=== PATIENT | female | born 1980 | race Caucasian/White ===

== ENCOUNTER → 2017-01-20 | Outpatient (CLI) | payer MEDICARE ==
[~2017-01-20] MED LIST: ABILIFY 15MG TA15 MG PO; AMBIEN 10MG10 MG PO; AMITRIPTYLINE H10 MG; AMOXICILLIN 8751 TAB PO; CARAFATE 1GM1 G PO; CEFTIN 250250 MG/TAB PO; CIPRO500 MG PO; CLEOCIN HCL300 MG PO; COLACE 100100 MG/CAP PO; CYMBALTA 30MG30 MG PO; CYMBALTA 60MG60 MG PO; CYMBALTA30 MG PO; DEPAKOTE 125MG125 M1 PO; DESYREL 100MG100 MG PO; DIAZEPAM PO; DILAUDID 4MG TAB4 MG PO; DILAUDID4 MG PO; DOXYCYCLINE 10100 MG PO; ELIMITE TOP; FENTANYL 75MCG TOP; FLAGYL500 MG PO; FLEXERIL 1010 MG/TAB PO; GABAPENTIN600 MG PO; HYDROMORPHONE HY8 MG PO; K-DUR 10 MEQ T10 MEQ PO; K-DUR 2020 MEQ PO; LEVAQUIN; LEVAQUIN 5500 MG/TA1 PO; LEXAPRO 10MG10 MG PO; LORTAB 5/500 501 TAB PO; LYRICA; MIRALAX PA17 GM/Dose PO; MOTRIN 600600 MG/TAB PO; MOTRIN 800800 MG/TAB PO; MS CONTIN60 MG PO; NAPROSYN500 MG PO; NEOSPORIN1 OIN OP; NORCO 325 MG-51 TAB PO; OXYCONTIN60 MG PO; PEPCID 20MG TAB20 MG PO; PERCOCET 325 MG1 TA2 PO; PERCOCET 325 MG1 TAB PO; PERCOCET 5/321 UDTAB PO; PERCOCET 650 MG1 TAB PO; PHENERGAN 25 TA25 MG PO; PHENERGAN W/CO120 M1 PO; PHENERGAN25 MG RC; PREDNISONE10 MG PO; PREVACID 15MG15 M1 PO; PRILOSEC 20MG20 MG PO; PROMETHAZINE12.5 M5 PO; PROVENTIL0.09 MG/A1 IH; REGLAN 10MG10 MG/TAB PO; XANAX 1MG1 MG PO; XANAX0.5 MG PO; ZANAFLEX 4MG TAB4 MG PO; ZOFRAN 4MG T4 MG/TAB PO; ZOFRAN ODT8 MG PO; [UNRECOGNIZED DRUG - REMARK]
== END ==
LOC: MC.RAD 13:00
DX: D24.2 Benign neoplasm of left breast (principal); D24.1 Benign neoplasm of right breast; Z98.82 Breast implant status

== ENCOUNTER 2017-05-09 16:39 | Emergency (ER) | payer MEDICARE ==
[~2017-05-09] VITALS: Ht 170.2 cm; Wt 51.2 kg
[2017-05-09 16:48] VITALS: BP 121/80; TEMP 98.9
[2017-05-09 18:39] VITALS: PULSE 107
== END 2017-05-09 19:00 | disposition home or self-care (01) ==
LOC: COL.ER 16:39
DX: S60.221A Contusion of right hand, initial encounter (principal); G89.29 Other chronic pain; M54.9 Dorsalgia, unspecified; F17.210 Nicotine dependence, cigarettes, uncomplicated; W22.01XA Walked into wall, initial encounter; Y92.009 Unspecified place in unspecified non-institutional (private) residence as the place of occurrence of the external cause

== ENCOUNTER 2018-02-02 12:12 | Emergency (ER) | payer MEDICARE ==
[~2018-02-02] VITALS: Ht 170.2 cm; Wt 54.2 kg
[2018-02-02 12:27] VITALS: BP 128/74; TEMP 98.3
[2018-02-02] MEDS ORDERED: B COMPLEX & B121 TAB PO (12:31)
[2018-02-02 16:04] VITALS: PULSE 86
== END 2018-02-02 16:08 | disposition home or self-care (01) ==
LOC: COL.ER 12:12
DX: S63.501A Unspecified sprain of right wrist, initial encounter (principal); S60.221A Contusion of right hand, initial encounter; F12.90 Cannabis use, unspecified, uncomplicated; F17.210 Nicotine dependence, cigarettes, uncomplicated; Z90.710 Acquired absence of both cervix and uterus; Z90.89 Acquired absence of other organs; Z90.49 Acquired absence of other specified parts of digestive tract; Z98.890 Other specified postprocedural states; Z98.51 Tubal ligation status; W22.8XXA Striking against or struck by other objects, initial encounter; Y92.009 Unspecified place in unspecified non-institutional (private) residence as the place of occurrence of the external cause
CPT/HCPCS: J1885; Q4021

== ENCOUNTER → 2018-09-25 | Outpatient (CLI) | payer MEDICARE ==
[~2018-09-25] MED LIST changes: +B COMPLEX & B121 TAB PO
== END ==
LOC: COL.VAS 15:00
DX: Z82.49 Family history of ischemic heart disease and other diseases of the circulatory system (principal)

== ENCOUNTER 2018-12-10 02:10 | Emergency (ER) | payer MEDICARE | END 2018-12-10 02:40 | disposition left against medical advice (07) | LOC: COL.ER 02:10 | DX: Z72.9 Problem related to lifestyle, unspecified (principal) ==

== ENCOUNTER 2019-03-10 17:41 | Emergency (ER) | payer MEDICARE ==
[2019-03-10 17:47] VITALS: TEMP 98.4
[2019-03-10 19:16] LABS: BASO % 0.5 % (0.0-2.0); EOS # 0.2 (0.0-0.7); EOS % 3.5 % (0-4.0); GRAN # 1.7 (1.4-6.5); GRAN % 38.5 % (42.2-75.2); HEMATOCRIT 44.5 % (37.0-47.0); HEMOGLOBIN 14.6 g/dl (12.5-16.0); LYMPH # 2.2 (1.2-3.4); LYMPH % 50.1 % (20.0-51.0); MEAN CELL VOLUME 98 fl (80.0-100.0); MEAN CORPUSCULAR HEMOGLOBIN 32 pg (27.0-31.0); MEAN CORPUSCULAR HGB CONC 33 g/dl (33.0-37.0); MEAN PLATELET VOLUME 10.4 fl (7.4-10.4); MONO # 0.3 (0.1-0.6); MONO % 7.4 % (1.7-9.3); PLATELET COUNT 273 K/mm3 (130-400); RED BLOOD COUNT 4.54 M/mm3 (4.10-5.30); REDCELL DISTRIBUTION WIDTH-CV 12.6 % (11.5-14.5)
[2019-03-10 20:21] LABS: ALBUMIN 4.1 gm/dL (3.5-5.0); BILIRUBIN,TOTAL 0.2 mg/dL (0.0-1.0); CALCIUM 8.4 mg/dL (8.4-10.2); CREATININE, serum 0.6 (0.52-1.25); PHOSPHOROUS 2.9 mg/dL (2.5-4.5); POTASSIUM 4.2 mmol/L (3.4-5.0); TOTAL PROTEIN 7.2 gm/dL (6.4-8.2)
[2019-03-10 20:51] LABS: TSH w REFLEX 0.217 uIU/mL (0.465-4.680)
[2019-03-10 22:49] VITALS: BP 118/82; PULSE 107
== END 2019-03-10 22:49 | disposition home or self-care (01) ==
LOC: COL.ER 17:41
PROVIDERS: Emergency Medicine
DX: R55 Syncope and collapse (principal); F41.9 Anxiety disorder, unspecified; F17.210 Nicotine dependence, cigarettes, uncomplicated; Z90.49 Acquired absence of other specified parts of digestive tract; Z90.710 Acquired absence of both cervix and uterus; Z90.89 Acquired absence of other organs
CPT/HCPCS: J2060; J7030

== ENCOUNTER 2019-04-30 19:23 | Inpatient (IN) | payer MEDICARE ==
[~2019-04-30] VITALS: Ht 170.2 cm; Wt 55.5 kg
[2019-04-30 20:11] LABS: BASO % 0.2 % (0.0-2.0); EOS # 0.2 (0.0-0.7); EOS % 1.4 % (0-4.0); GRAN # 7.3 (1.4-6.5); GRAN % 69.1 % (42.2-75.2); HEMOGLOBIN 15.9 g/dl (12.5-16.0); LYMPH # 2.5 (1.2-3.4); LYMPH % 23.3 % (20.0-51.0); MEAN CELL VOLUME 95 fl (80.0-100.0); MEAN CORPUSCULAR HEMOGLOBIN 32 pg (27.0-31.0); MEAN CORPUSCULAR HGB CONC 34 g/dl (33.0-37.0); MEAN PLATELET VOLUME 10.1 fl (7.4-10.4); MONO # 0.6 (0.1-0.6); MONO % 5.8 % (1.7-9.3); PLATELET COUNT 278 K/mm3 (130-400); RED BLOOD COUNT 4.97 M/mm3 (4.10-5.30); REDCELL DISTRIBUTION WIDTH-CV 13.1 % (11.5-14.5)
[2019-04-30 20:24] LABS: ALANINE AMINOTRANSFERASE 14 U/L (4-34); ALBUMIN 4.8 gm/dL (3.5-5.0); ALKALINE PHOSPHATASE 67 U/L (50-136); ANION GAP 12 mmol/L (7-16); AST,SGOT 22 U/L (15-37); BILIRUBIN,TOTAL 0.5 mg/dL (0.0-1.0); BLOOD UREA NITROGEN 15 mg/dL (7-17); CALCIUM 9.9 mg/dL (8.4-10.2); CARBON DIOXIDE 21 mmol/L (22-30); CHLORIDE 106 mmol/L (98-107); CREATININE, serum 0.71 (0.52-1.25); GLUCOSE 122 mg/dL (74-106); LIPASE 105 U/L (23-300); POTASSIUM 4.4 mmol/L (3.4-5.0); SODIUM 139 mmol/L (137-145); TOTAL PROTEIN 8.6 gm/dL (6.4-8.2)
[2019-04-30 20:29] LABS: C-REACTIVE PROTEIN < 0.5 mg/dL (0.0-0.9)
[2019-04-30 20:38] LABS: COLLECTION METHOD CLEAN CATCH
[2019-04-30 20:49] LABS: MUCOUS Present /lpf; PH 5 (5-8); URINE APPEARANCE Cloudy; URINE BACTERIA Moderate /hpf; URINE BILIRUBIN Negative (NEGATIVE); URINE BLOOD Negative (NEGATIVE); URINE COLOR Yellow; URINE GLUCOSE Negative (NEGATIVE); URINE KETONE Negative (NEGATIVE); URINE LEUKOCYTE ESTERASE Negative (NEGATIVE); URINE NITRATE Positive (NEGATIVE); URINE PROTEIN(semi-quant) 1+ (NEGATIVE); URINE RBC 0-2 /hpf
[2019-04-30 23:43] VITALS: BP 130/86; PULSE 68; TEMP 98.3
--- NOTE | 2019-05-01 | NUR ---
Pt. arrived to the floor via stretcher. Pt. is A&OX3, assessment complete. IV to rt. forearm patent, IV fluids started per orders. Pt. reports abd. pain at 9 on pain scale, will give pain meds per orders. Pt. denies futher needs, call light within reach.
[2019-05-01 03:58] VITALS: BP 153/91; PULSE 69; TEMP 98.4
[2019-05-01 07:57] VITALS: BP 121/75; PULSE 69; TEMP 98.6
--- NOTE | 2019-05-01 08:30 | NUR ---
THIS NURSE NOTIFIED BY SUSPENDER CUTTER THAT THE PATIENT HAD AN EPISODE OF EMESIS. PATIENT IS DROWSY THIS MORNING. PATIENT A&OX4. VSS. SHALLOW BREATHING WITH DIMINISHED BASES NOTED. PATIENT DENIES SOB. ABDOMEN IS FIRM AND DISTENDED. BOWEL SOUNDS HYPOACTIVE ALL QUADRANTS. PATIENT IS NPO. IV FLUIDS INFUSING TO RIGHT FOREARM. PATIENT GIVEN PRN NAUSEA AND PAIN MEDICATION. CALL LIGHT WITHIN REACH. SON PRESENT AT THE BEDSIDE. NO OTHER NEEDS AT THIS TIME.
--- NOTE | 2019-05-01 09:16 | NUR ---
ESTEPHANIE met with the patient and her [id number]-run son, Berhane, to discuss discharge plan. The patient lives in [place] with her , Paul (ph#[phone]), and Berhane. She reports independence with ADLs and does not have any DME. The patient's PCP is Dr. David Carter and she receives her medications at [facility]. She reports no difficulties obtaining her meds. The patient does not have advanced directives and she was not interested in completing them at this time. The patient plans to return home with her family upon discharge. No additional needs at this time.
[2019-05-01 11:34] VITALS: BP 140/79; PULSE 87; TEMP 97.9
--- NOTE | 2019-05-01 11:53 | NUR ---
PATIENT NOTIFIED THE RIVETER PORTABLE MACHINE THAT SHE WAS FEELING NAUSEATED. PATIENT GIVEN PRN NAUSEA MEDICATION. WILL CONTINUE TO MONITOR.
[2019-05-01 15:32] VITALS: BP 135/66; PULSE 94; TEMP 99.8
--- NOTE | 2019-05-01 16:28 | NUR ---
PATIENT ENCOURAGED TO AMBULATE WITHIN ROOM. PATIENT STATES THAT SHE HAS SOME INDIGESTION. PATIENT STATES THAT THE PAIN IS BEETER THIS AFTERNOON FROM THIS MORNING.
--- NOTE | 2019-05-01 19:00 | NUR ---
BEDSIDE SHIFT REPORT GIVEN TO CARRIE GUADALUPE.
[2019-05-01 19:36] VITALS: BP 109/71; PULSE 114; TEMP 99.1
[2019-05-01 23:25] VITALS: BP 110/72; PULSE 88; TEMP 98.6
--- NOTE | 2019-05-02 00:22 | NUR ---
Patient doing well tonight. alert and oriented. c/o pain and nausea, prn dilaudid and zofran given. patient states she had some emesis at shift change but did not save it. encouraged patient to use washbasin and to show us if she has anymore emesis. patient NPO at this time. no further needs at this time. will continue to monitor.
[2019-05-02 03:20] VITALS: BP 105/60; PULSE 107; TEMP 98.8
[2019-05-02 07:15] VITALS: BP 117/64; PULSE 98; TEMP 98.6
--- NOTE | 2019-05-02 07:30 | NUR ---
Lying in bed with eyes open. Rates pain in abd 7/10 and would like pain medication at this time. Is urinating without difficulty. Bowel sounds audible in all four quadrants. Patient denies being able to pass flatus and has not had a BM.
--- NOTE | 2019-05-02 07:34 | NUR ---
Administer Dilaudid as prescribed. Patient denies further needs at this time.
[2019-05-02 07:58] LABS: BASO % 0.2 % (0.0-2.0); EOS # 0.1 (0.0-0.7); EOS % 1.3 % (0-4.0); GRAN # 5.7 (1.4-6.5); GRAN % 68.4 % (42.2-75.2); HEMATOCRIT 40.6 % (37.0-47.0); LYMPH # 1.9 (1.2-3.4); LYMPH % 22.6 % (20.0-51.0); MEAN CELL VOLUME 97 fl (80.0-100.0); MEAN CORPUSCULAR HEMOGLOBIN 31 pg (27.0-31.0); MEAN CORPUSCULAR HGB CONC 32 g/dl (33.0-37.0); MEAN PLATELET VOLUME 10.7 fl (7.4-10.4); MONO # 0.6 (0.1-0.6); MONO % 7.3 % (1.7-9.3); PLATELET COUNT 222 K/mm3 (130-400); RED BLOOD COUNT 4.17 M/mm3 (4.10-5.30); REDCELL DISTRIBUTION WIDTH-CV 13.1 % (11.5-14.5)
[2019-05-02 08:00] LABS: HEMOGLOBIN 13.1 g/dl (12.5-16.0)
[2019-05-02 08:11] LABS: CALCIUM 8.3 mg/dL (8.4-10.2); CREATININE, serum 0.67 (0.52-1.25); POTASSIUM 4.1 mmol/L (3.4-5.0)
--- NOTE | 2019-05-02 10:44 | NUR ---
Rates pain 6/10 in abd and requests pain medication. Administered Dilaudid as prescribed. Encouraged patient to ambulate as well. Patient denies further needs.
--- NOTE | 2019-05-02 12:00 | NUR ---
First visit from the groutman. No needs right now.
[2019-05-02 12:07] VITALS: BP 148/78; PULSE 106; TEMP 98.2
--- NOTE | 2019-05-02 12:25 | NUR ---
Patient tearful in room and says that she is starting to get anxious and is wanting a cigarette. Explain that we can call Dr. Napier to see if can get an order for a nicotine patch but we would not be able to allow her to go outside to smoke. Patient agrees to patch. Dr. Napier contacted and order received.
--- NOTE | 2019-05-02 12:49 | NUR ---
Rates pain 6-7/10 in abd and requests pain medication. Administered Dilaudid as prescribed. Patient denies further needs at this time.
--- NOTE | 2019-05-02 13:32 | NUR ---
Patient had one small, inch size, hard brown BM. Requests to remove nicotine patch from arm as it is causing her skin to be irritated. Patient removes and places in trash. Patient up ambulating in halls at this time.
--- NOTE | 2019-05-02 14:27 | NUR ---
Patient's boyfriend here to coding clerks supervisor patient. Reviewed discharge instructions with the patient. Questions answered. Patient signs documents. Discharge packet provided to the patient. Patient discharged via wheelchair with Jessenia, DIRECTOR OF ADULT EPILEPSY, and boyfriend.
[2019-05-05] MEDS ORDERED: NORCO 325 MG-51 TAB PO (09:55)
== END 2019-05-02 14:32 | disposition home or self-care (01) | DRG 389 ==
LOC: COL.ER 19:23 → SURG 22:31
PROVIDERS: Emergency Medicine; Family Medicine; ADMIT Surgery
DX: K56.50 Intestinal adhesions [bands], unspecified as to partial versus complete obstruction (principal); N39.0 Urinary tract infection, site not specified; K59.00 Constipation, unspecified; F17.200 Nicotine dependence, unspecified, uncomplicated; F41.9 Anxiety disorder, unspecified; K59.04 Chronic idiopathic constipation; Z90.710 Acquired absence of both cervix and uterus; Z90.49 Acquired absence of other specified parts of digestive tract; Z90.89 Acquired absence of other organs
CPT/HCPCS: A4216; J0696; J1170; J2270; J2405; J2550; J7030; J7120; Q9967

== ENCOUNTER 2019-08-06 05:26 | Emergency (ER) | payer MEDICARE ==
[~2019-08-06] VITALS: Ht 170.2 cm; Wt 50.0 kg
[2019-08-06 05:32] VITALS: BP 105/66; TEMP 98.1
[2019-08-06 05:44] LABS: COLLECTION METHOD CLEAN CATCH
[2019-08-06 05:56] LABS: MUCOUS Present /lpf; PH 5 (5-8); URINE APPEARANCE Hazy; URINE BACTERIA None Seen /hpf; URINE BILIRUBIN Negative (NEGATIVE); URINE BLOOD Negative (NEGATIVE); URINE COLOR Yellow; URINE GLUCOSE Negative (NEGATIVE); URINE KETONE Negative (NEGATIVE); URINE LEUKOCYTE ESTERASE Negative (NEGATIVE); URINE NITRATE Negative (NEGATIVE); URINE PROTEIN(semi-quant) Negative (NEGATIVE); URINE RBC 0-2 /hpf; URINE UROBILINOGEN Negative (NEGATIVE)
[2019-08-06] MEDS ORDERED: PYRIDIUM200 M1 PO (06:09)
[2019-08-06] MEDS ORDERED: BACTRIM DS 8001 TAB PO (06:09)
[2019-08-06 06:19] VITALS: PULSE 99
== END 2019-08-06 06:22 | disposition home or self-care (01) ==
LOC: COL.ER 05:26
PROVIDERS: Emergency Medicine
DX: R30.0 Dysuria (principal); F17.210 Nicotine dependence, cigarettes, uncomplicated; Z90.89 Acquired absence of other organs; Z90.710 Acquired absence of both cervix and uterus; Z90.49 Acquired absence of other specified parts of digestive tract

== ENCOUNTER 2020-09-22 19:22 | Emergency (ER) | payer MEDICARE, OTHER ==
[~2020-09-22] VITALS: Ht 170.2 cm; Wt 62.7 kg
[~2020-09-22 19:22] MED LIST changes: +BACTRIM DS 8001 TAB PO; +PYRIDIUM200 M1 PO
[2020-09-23] MEDS ORDERED: AMOXICILLIN 8751 TAB PO (02:55)
[2020-09-23 03:40] VITALS: BP 118/64; PULSE 88; TEMP 98.1
== END 2020-09-23 03:40 | disposition home or self-care (01) ==
LOC: COL.ER 19:22
DX: S61.451A Open bite of right hand, initial encounter (principal); S71.151A Open bite, right thigh, initial encounter; Z23 Encounter for immunization; W54.0XXA Bitten by dog, initial encounter
CPT/HCPCS: J0690; J1170; J1885; J2270; J2405; J7030

== ENCOUNTER 2020-10-05 15:47 | Inpatient (IN) | payer MEDICARE ==
[~2020-10-05] VITALS: Ht 170.2 cm; Wt 55.5 kg
[2020-10-05 17:00] LABS: HEMATOCRIT 37.9 % (37.0-47.0); HEMOGLOBIN 12.6 g/dl (12.5-16.0); MEAN CELL VOLUME 98 fl (80.0-100.0); MEAN CORPUSCULAR HEMOGLOBIN 33 pg (27.0-31.0); MEAN CORPUSCULAR HGB CONC 33 g/dl (33.0-37.0); MEAN PLATELET VOLUME 10.7 fl (7.4-10.4); PLATELET COUNT 263 K/mm3 (130-400); RED BLOOD COUNT 3.86 M/mm3 (4.10-5.30); REDCELL DISTRIBUTION WIDTH-CV 13.6 % (11.5-14.5)
[2020-10-05 17:32] LABS: ERYTHROCYTE SEDIMENTATION RATE 9 mm/hr (0-20)
[2020-10-05 17:34] LABS: ALBUMIN 4.3 gm/dL (3.5-5.0); BILIRUBIN,TOTAL 0.4 mg/dL (0.0-1.0); C-REACTIVE PROTEIN 0.8 mg/dL (0.0-0.9); CALCIUM 8.7 mg/dL (8.4-10.2); CREATININE, serum 0.76 (0.52-1.25); POTASSIUM 3.9 mmol/L (3.4-5.0); TOTAL PROTEIN 7.6 gm/dL (6.4-8.2)
[2020-10-05 18:08] LABS: BAND 4 % (0-10); BASOPHIL 1 % (0-2); LYMPHOCYTE 8 % (20.0-51.0); NEUTROPHILS 85 % (42.0-75.2)
[2020-10-05 18:09] LABS: PLATELET ESTIMATE NORMAL (NORMAL)
[2020-10-05 18:10] LABS: HYPOCHROMIA 1+
[2020-10-05 20:18] LABS: MAGNESIUM 1.6 mg/dL (1.6-2.3); PHOSPHOROUS 2.5 mg/dL (2.5-4.5)
[2020-10-06] VITALS (7 sets, daily range): BP systolic 76–102; BP diastolic 42–69; PULSE 78–96; TEMP 98–98.7
[2020-10-06 04:13] LABS: COLLECTION METHOD CLEAN CATCH
[2020-10-06 04:24] LABS: PH 7 (5-8); SQUAMOUS EPITHELIAL 0-2 /hpf; URINE APPEARANCE Hazy; URINE BACTERIA None Seen /hpf; URINE BILIRUBIN Negative (NEGATIVE); URINE BLOOD Negative (NEGATIVE); URINE COLOR Straw; URINE GLUCOSE Negative (NEGATIVE); URINE KETONE Negative (NEGATIVE); URINE LEUKOCYTE ESTERASE 2+ (NEGATIVE); URINE NITRATE Negative (NEGATIVE); URINE PROTEIN(semi-quant) Negative (NEGATIVE); URINE RBC 0-2 /hpf; URINE UROBILINOGEN Negative (NEGATIVE)
[2020-10-06 04:26] LABS: TRICYCLIC ANTIDEPRESS URINE NEGATIVE
[2020-10-07 03:22] VITALS: BP 105/64; PULSE 88; TEMP 97.8
[2020-10-07 06:23] LABS: BASO % 0.2 % (0.0-2.0); EOS # 0.3 (0.0-0.7); EOS % 2.1 % (0-4.0); GRAN # 9.2 (1.4-6.5); GRAN % 74.5 % (42.2-75.2); LYMPH # 2.3 (1.2-3.4); LYMPH % 18.3 % (20.0-51.0); MEAN CELL VOLUME 99 fl (80.0-100.0); MEAN CORPUSCULAR HGB CONC 33 g/dl (33.0-37.0); MEAN PLATELET VOLUME 10.2 fl (7.4-10.4); MONO # 0.6 (0.1-0.6); MONO % 4.5 % (1.7-9.3); PLATELET COUNT 241 K/mm3 (130-400); RED BLOOD COUNT 3.11 M/mm3 (4.10-5.30); REDCELL DISTRIBUTION WIDTH-CV 13.5 % (11.5-14.5)
[2020-10-07 06:28] LABS: HEMATOCRIT 30.7 % (37.0-47.0); HEMOGLOBIN 10.1 g/dl (12.5-16.0); MEAN CORPUSCULAR HEMOGLOBIN 32 pg (27.0-31.0)
[2020-10-07 06:34] LABS: CALCIUM 7.3 mg/dL (8.4-10.2); CREATININE, serum 0.58 (0.52-1.25); POTASSIUM 3.2 mmol/L (3.4-5.0)
[2020-10-07 07:17] VITALS: BP 112/72; PULSE 91; TEMP 98.3
[2020-10-07 11:27] VITALS: BP 108/67; PULSE 91; TEMP 98.2
[2020-10-07] MEDS ORDERED: AMOXICILLIN 8751 TAB PO (11:55)
[2020-10-07] MEDS ORDERED: NORCO 325 MG-51 TAB PO (11:56)
[2020-10-07 15:36] VITALS: BP 102/81; PULSE 80; TEMP 98.3
== END 2020-10-07 17:00 | disposition home or self-care (01) | DRG 872 ==
LOC: COL.ER 15:47 → SURG 19:51
PROVIDERS: Emergency Medicine; Nurse Practitioner Family; Physician Assistant; ADMIT Student in an Organized Health Care Education/Training Program
DX: A41.9 Sepsis, unspecified organism (principal); E87.1 Hypo-osmolality and hyponatremia; N39.0 Urinary tract infection, site not specified; L03.113 Cellulitis of right upper limb; R65.20 Severe sepsis without septic shock; F15.10 Other stimulant abuse, uncomplicated; S62.344A Nondisplaced fracture of base of fourth metacarpal bone, right hand, initial encounter for closed fracture; F17.210 Nicotine dependence, cigarettes, uncomplicated; S62.305A Unspecified fracture of fourth metacarpal bone, left hand, initial encounter for closed fracture; Z90.49 Acquired absence of other specified parts of digestive tract; Z90.89 Acquired absence of other organs; Z90.710 Acquired absence of both cervix and uterus; W54.0XXA Bitten by dog, initial encounter
CPT/HCPCS: 99223-AI; 99232-AI; 99239; J1170; J2270; J2543; J3370; J7030; J7050; Q9967

== ENCOUNTER 2020-12-25 07:50 | Emergency (ER) | payer MEDICARE ==
[~2020-12-25] VITALS: Ht 170.2 cm; Wt 56.8 kg
[2020-12-25 07:57] VITALS: TEMP 98.2
[2020-12-25 08:23] LABS: COLLECTION METHOD CLEAN CATCH
[2020-12-25 08:32] LABS: MUCOUS Present /lpf; PH 7 (5-8); URINE APPEARANCE Cloudy; URINE BACTERIA Moderate /hpf; URINE BILIRUBIN Negative (NEGATIVE); URINE BLOOD 2+ (NEGATIVE); URINE COLOR Yellow; URINE GLUCOSE Negative (NEGATIVE); URINE KETONE Negative (NEGATIVE); URINE LEUKOCYTE ESTERASE 3+ (NEGATIVE); URINE NITRATE Negative (NEGATIVE); URINE PROTEIN(semi-quant) 2+ (NEGATIVE); URINE RBC >50 /hpf; URINE UROBILINOGEN Negative (NEGATIVE)
[2020-12-25 09:20] LABS: BASO % 0.4 % (0.0-2.0); EOS # 0.2 K/mm3 (0.0-0.7); EOS % 1.6 % (0-4.0); GRAN # 6.6 K/mm3 (1.4-6.5); GRAN % 63.1 % (42.2-75.2); LYMPH # 2.8 K/mm3 (1.2-3.4); LYMPH % 27.1 % (20.0-51.0); MEAN CELL VOLUME 96 fl (80.0-100.0); MEAN CORPUSCULAR HEMOGLOBIN 32 pg (27.0-31.0); MEAN CORPUSCULAR HGB CONC 33 g/dl (33.0-37.0); MEAN PLATELET VOLUME 10.1 fl (7.4-10.4); MONO # 0.8 K/mm3 (0.1-0.6); MONO % 7.5 % (1.7-9.3); PLATELET COUNT 279 K/mm3 (130-400); RED BLOOD COUNT 3.81 M/mm3 (4.10-5.30); REDCELL DISTRIBUTION WIDTH-CV 13.1 % (11.5-14.5)
[2020-12-25 09:22] LABS: HEMATOCRIT 36.4 % (37.0-47.0)
[2020-12-25 09:39] LABS: ALBUMIN 3.5 gm/dL (3.5-5.0); BILIRUBIN,TOTAL 0.3 mg/dL (0.2-1.2); CALCIUM 9.1 mg/dL (8.4-10.2); CREATININE, serum 0.77 mg/dL (0.57-1.11); POTASSIUM 3.8 mmol/L (3.5-4.5); TOTAL PROTEIN 6.7 gm/dL (6.2-8.1)
[2020-12-25] MEDS ORDERED: CIPRO 500MG TA500 MG PO (11:00)
[2020-12-25 11:30] VITALS: BP 100/65; PULSE 91
== END 2020-12-25 12:03 | disposition home or self-care (01) ==
LOC: COL.ER 07:50
PROVIDERS: Emergency Medicine
DX: N12 Tubulo-interstitial nephritis, not specified as acute or chronic (principal); K83.8 Other specified diseases of biliary tract; N39.0 Urinary tract infection, site not specified; F17.200 Nicotine dependence, unspecified, uncomplicated; Z90.49 Acquired absence of other specified parts of digestive tract; Z90.710 Acquired absence of both cervix and uterus
CPT/HCPCS: J0696; J1885; J2270; J2405; J7030; Q9967

== ENCOUNTER 2020-12-26 13:37 | Day surgery (SDC) | payer MEDICARE ==
[~2020-12-26] VITALS: Ht 170.2 cm; Wt 55.4 kg
[~2020-12-26 13:37] MED LIST changes: +CIPRO 500MG TA500 MG PO
[2020-12-26 13:49] VITALS: BP 113/80; PULSE 92; TEMP 98.1
[2020-12-26 15:20] VITALS: BP 106/78; PULSE 80; TEMP 97.1
--- NOTE | 2020-12-26 15:20 | NUR ---
Patient arrived from endo suite, escorted by Alisa BUTLER. Per report: patient needs to wait here for 2 hour. End of procedure time is 1503, so estimated discharge time aroud 1703. Vitals obtained. Patient requested abigial and lorena. She wants me to wait to get her family so she can sleep for a little bit. Call anderson is within reach.
[2020-12-26 15:35] VITALS: BP 111/78; PULSE 62
--- NOTE | 2020-12-26 15:35 | NUR ---
Patient is sleeping, and is tolerating her jello and sprite well. Vitals obtained. Call anderson is within reach. Will continue to monitor.
[2020-12-26 15:55] VITALS: BP 115/80; PULSE 62
--- NOTE | 2020-12-26 15:55 | NUR ---
Patient is sleepy but easily woke up to answer some questions. Denies abdominal discomfort and pain. Patient stated it was AOK to let her two visitors in. They were escorted to bay #[address] by CARRIE Braswell. Vitals obtained. Will continue to monitor.
[2020-12-26 16:05] VITALS: BP 119/68; PULSE 54
--- NOTE | 2020-12-26 16:05 | NUR ---
Vitals obtained. Fluids disconnected so patient can use the BR. Will continue to monitor. Call anderson is on bedside table.
--- NOTE | 2020-12-26 16:32 | NUR ---
IV discontined at this time due to impending discharge. Denies abdominal pain and N/V symptoms. Catheter tip intact. No redness or swelling present. Pressure dressing applied. Patient is currently changing. RN preparing discharge instructions. Vitals obtained.
[2020-12-26 16:35] VITALS: BP 117/79; PULSE 72
--- NOTE | 2020-12-26 16:56 | NUR ---
Discharge instructions reviewed with patient. Patient verbalized understanding and signed realted paperwork.
--- NOTE | 2020-12-26 17:03 | NUR ---
Patient was [facility] by CARRIE Braswell. Patient has her discharge instructions and personal belongings. States no futher questions or concerns. Patient was transferred into the care of Donte, who is present to drive home.
== END 2020-12-26 17:04 | disposition home or self-care (01) ==
LOC: SDCO 13:37
DX: K31.5 Obstruction of duodenum (principal); K83.8 Other specified diseases of biliary tract; K31.89 Other diseases of stomach and duodenum; F41.1 Generalized anxiety disorder; F32.A Depression, unspecified; Z86.16 Personal history of COVID-19; Z79.899 Other long term (current) drug therapy
CPT/HCPCS: C1769; J2704; J7120; Q9967

== ENCOUNTER 2021-04-21 18:19 | Inpatient (IN) | payer MEDICARE ==
[~2021-04-21] VITALS: Ht 170.2 cm; Wt 52.6 kg
[2021-04-21 18:58] LABS: BASO % 0.3 % (0.0-2.0); EOS # 0.2 K/mm3 (0.0-0.7); EOS % 1.9 % (0.0-4.0); GRAN # 4.4 K/mm3 (1.4-6.5); GRAN % 57.1 % (42.2-75.2); HEMATOCRIT 38.3 % (37.0-47.0); LYMPH # 2.1 K/mm3 (1.2-3.4); LYMPH % 27.8 % (20.0-51.0); MEAN CELL VOLUME 94 fl (80.0-100.0); MEAN CORPUSCULAR HEMOGLOBIN 32 pg (27-31); MEAN CORPUSCULAR HGB CONC 34 g/dl (33.0-37.0); MEAN PLATELET VOLUME 9.8 fl (7.4-10.4); MONO % 12.6 % (1.7-9.3); PLATELET COUNT 384 K/mm3 (130-400); RED BLOOD COUNT 4.09 M/mm3 (4.10-5.30); REDCELL DISTRIBUTION WIDTH-CV 13.2 % (11.5-14.5)
[2021-04-21 19:08] LABS: INR 1.2 (0.8-3.0); PROTHROMBIN TIME 12.9 SECONDS (9.7-12.8)
[2021-04-21 19:10] LABS: PARTIAL THROMBOPLASTIN TIME 27.5 SECONDS (26.0-37.0)
[2021-04-21 19:14] LABS: COLLECTION METHOD CLEAN CATCH
[2021-04-21 19:19] LABS: ALANINE AMINOTRANSFERASE 11 U/L (0-55); ALBUMIN 3.2 gm/dL (3.5-5.0); ALKALINE PHOSPHATASE 61 U/L (40-150); ANION GAP 9 mmol/L (7-16); AST,SGOT 14 U/L (5-34); BILIRUBIN,TOTAL 0.2 mg/dL (0.2-1.2); BLOOD UREA NITROGEN 8 mg/dL (7-19); CALCIUM 9.2 mg/dL (8.4-10.2); CARBON DIOXIDE 24 mmol/L (22-29); CHLORIDE 104 mmol/L (98-107); CREATININE, serum 0.77 mg/dL (0.57-1.11); GLUCOSE 91 mg/dL (70-99); POTASSIUM 3.7 mmol/L (3.5-4.5); SODIUM 137 mmol/L (136-145); TOTAL PROTEIN 7.4 gm/dL (6.2-8.1)
[2021-04-21 19:28] LABS: TROPONIN-I < 0.010 ng/mL (0.00-0.033)
[2021-04-21 19:30] LABS: MUCOUS Present (NOT PRESENT); PH 5 (5-8); SQUAMOUS EPITHELIAL 0-2 /hpf (0-10); URINE APPEARANCE Cloudy (CLEAR/HAZY); URINE BACTERIA Rare /hpf (NONE SEEN); URINE BILIRUBIN Negative (NEGATIVE); URINE BLOOD 1+ (NEGATIVE); URINE COLOR Amber (YELLOW); URINE GLUCOSE Negative (NEGATIVE); URINE KETONE Trace (NEGATIVE); URINE LEUKOCYTE ESTERASE Negative (NEGATIVE); URINE NITRATE Positive (NEGATIVE); URINE PROTEIN(semi-quant) Negative (NEGATIVE); URINE RBC 0-2 /hpf (0-2)
[2021-04-22] VITALS (13 sets, daily range): BP systolic 81–123; BP diastolic 44–81; PULSE 66–101; TEMP 97.5–98.8
--- NOTE | 2021-04-22 04:09 | NUR ---
40 yo female with a history of IV drug use is admitted for further care and management of sepsis with concern for endocarditis/septic emboli (ground glass opacities on chest x-ray) ht 67 inches wt kg SCr 0.77 with estimated CrCl >60 ml/min half life 8.1 hours Plan: Patient received a loading dose of vancomycin 1000 mg x1 in the ED (18.3 mg/kg); will follow with a maintenance regimen of vancomycin 750 mg q8h to target a goal trough of 15-20 mcg/ml. Will follow patient's renal function, micro data, and vancomycin levels as indicated to assess for any necessary changes to regimen. Thank you for this dosing consult.
--- NOTE | 2021-04-22 05:35 | NUR ---
DR PATINO NOTIFED OF PT ADMIT AND S/S. NPO- NO FURTHER ORDERS.
--- NOTE | 2021-04-22 06:11 | NUR ---
RESTED THROUGH THE NIGHT WITHOUT INCIDENT. NEEDS MET.
--- NOTE | 2021-04-22 10:08 | NUR ---
hospital food service worker met with patient to discuss discharge plan. Patient resides at home with her boyfriend Paul ([phone]. Paul present at bedside. Patient is independent with her ADL's and does not utilize any DME to assist with mobility. Patient has no oxygen needs at home. PCP is Dr. Carter and she utilizes [facility] for medications. Patient reports that she does not have a DPOA-HC estbalished but her two sons Berhane ([phone]) and Eder are both 18 and she is not legally . Education provided to the patient and she wishes to "think about it". Patient is planning on returning home post discharge. Discharge plan: [facility]
[2021-04-22 13:42] LABS: BASO # 0.1 K/mm3 (0.0-0.2); BASO % 0.5 % (0.0-2.0); EOS # 0.2 K/mm3 (0.0-0.7); EOS % 1.6 % (0.0-4.0); GRAN # 7.1 K/mm3 (1.4-6.5); GRAN % 64.7 % (42.2-75.2); HEMOGLOBIN 11.9 g/dl (12.5-16.0); LYMPH # 2.6 K/mm3 (1.2-3.4); LYMPH % 23.7 % (20.0-51.0); MEAN CELL VOLUME 93 fl (80.0-100.0); MEAN CORPUSCULAR HEMOGLOBIN 31 pg (27-31); MEAN CORPUSCULAR HGB CONC 33 g/dl (33.0-37.0); MEAN PLATELET VOLUME 9.9 fl (7.4-10.4); MONO % 9.2 % (1.7-9.3); PLATELET COUNT 394 K/mm3 (130-400); RED BLOOD COUNT 3.86 M/mm3 (4.10-5.30); REDCELL DISTRIBUTION WIDTH-CV 13.2 % (11.5-14.5)
[2021-04-22 13:43] LABS: HEMATOCRIT 35.7 % (37.0-47.0)
[2021-04-22 14:04] LABS: CALCIUM 8.6 mg/dL (8.4-10.2); CREATININE, serum 0.66 mg/dL (0.57-1.11); POTASSIUM 3.8 mmol/L (3.5-4.5)
--- NOTE | 2021-04-22 17:57 | NUR ---
PT RETURNED TO ROOM FOLLOWING CHRIST AT 1445. VSS , BP SOFT. PT HAVING PAIN PRIMARILY IN ARM WHERE PICC LINE WAS JUST PLACED. A NERVE WAS HIT DURING INSERTION AND A HEATING PAD HAS BEEN APPLIED. PT ANXIOUS ABOUT HER ARM HURTING AND THAT HER HAND FEELS "NUMB". PT ADVANCING DIET WITHOUT COMPLICATIONS. PT MEDICATED FOR HER PAIN AND ANXIETY.
--- NOTE | 2021-04-22 19:29 | NUR ---
Pt s/o req to see manager house after telling him visting hours are 8-8, he wanted to go out and smoke, informed he can leave but she can not go smoke. offered nictonie patch, trena cox talks w pt and spouse express that they want to leave if her boyfriend can not stay, pt also states she does not trust us and that her arm (picc) hurts. pt had a kpad on and recent pain and aniexty med. Calling Hansa CASTELLANOS to come speak with pt.
--- NOTE | 2021-04-22 22:55 | NUR ---
PT DECIDED TO STAY SHE SAID SHE HAD NO CHOICE- HER BOYFRIEND LEFT. SHERRI CASTELLANOS TALKS W PT AND PT IS NOT HAPPY ABOUT THE STAY. HOWEVER THIS RN LEFT DOOR OPEN AND IS TREATING PAIN NEEDED TONIGHT, PT IS MORE COOPERATIVE WHEN S/O NOT AT BEDSIDE.
[2021-04-23 04:00] VITALS: BP 92/58; PULSE 74; TEMP 97.9
--- NOTE | 2021-04-23 06:00 | NUR ---
PT RESTED THROUGH THE NIGHT WITHOUT INCIDENT.
[2021-04-23 07:54] VITALS: BP 83/49; PULSE 72; TEMP 98
--- NOTE | 2021-04-23 10:00 | NUR ---
Patient reported discomfort along inner forearm not in relation to normal venous anatomy. warm moist pack present. denied numbness to tingling. Dr. Stahl informed asked for anti-inflammatory medication.
[2021-04-23 11:35] VITALS: BP 87/56; PULSE 78; TEMP 98.1
[2021-04-23 12:22] LABS: BASO % 0.6 % (0.0-2.0); EOS # 0.2 K/mm3 (0.0-0.7); EOS % 2.9 % (0.0-4.0); GRAN # 3.6 K/mm3 (1.4-6.5); GRAN % 52.7 % (42.2-75.2); HEMOGLOBIN 11.2 g/dl (12.5-16.0); LYMPH # 2.4 K/mm3 (1.2-3.4); MEAN CELL VOLUME 94 fl (80.0-100.0); MEAN CORPUSCULAR HEMOGLOBIN 31 pg (27-31); MEAN CORPUSCULAR HGB CONC 33 g/dl (33.0-37.0); MEAN PLATELET VOLUME 9.7 fl (7.4-10.4); MONO # 0.6 K/mm3 (0.1-0.6); MONO % 8.4 % (1.7-9.3); PLATELET COUNT 389 K/mm3 (130-400); REDCELL DISTRIBUTION WIDTH-CV 13.2 % (11.5-14.5)
[2021-04-23 12:23] LABS: HEMATOCRIT 33.7 % (37.0-47.0)
[2021-04-23 12:50] LABS: CALCIUM 8.1 mg/dL (8.4-10.2); CREATININE, serum 0.7 mg/dL (0.57-1.11); POTASSIUM 3.5 mmol/L (3.5-4.5)
[2021-04-23 17:30] VITALS: BP 97/58; PULSE 81; TEMP 99.3
[2021-04-23 19:35] VITALS: BP 85/54; PULSE 76; TEMP 98.9
--- NOTE | 2021-04-23 20:46 | NUR ---
Patient assessed at this time. Alert and oriented, and able to make needs known. Reported level 4 pain. Did request Morphine to "knock me out," and confirmed that pain was "not too bad." Explained to patient that Morphine was for break through pain that is severe. Explained that she can have more Sherman around 2200, and voiced understanding. Given PRN Melatonin for sleep per orders. PICC to RUE. Blood return. Started IV fluids per orders. Denies SOB and dyspnea. LS CTA. HRR. Telemetry in place. Voices no further questions, needs, or concerns at this time. In bed with call light within reach.
[2021-04-23 23:13] VITALS: BP 88/48; PULSE 74; TEMP 98.9
[2021-04-24 03:42] VITALS: BP 90/59; PULSE 78; TEMP 98.4
--- NOTE | 2021-04-24 05:02 | NUR ---
Patient has been in bed with call light within reach. Has not requested any pain medication this shift. Has been drowsy, awakens easily. Voices no questions, needs, or concerns at this time. In bed with call light within reach.
[2021-04-24 06:02] LABS: BASO % 0.5 % (0.0-2.0); EOS # 0.1 K/mm3 (0.0-0.7); EOS % 3.2 % (0.0-4.0); GRAN # 1.6 K/mm3 (1.4-6.5); GRAN % 37.7 % (42.2-75.2); HEMOGLOBIN 10.7 g/dl (12.5-16.0); LYMPH # 2.1 K/mm3 (1.2-3.4); LYMPH % 49.5 % (20.0-51.0); MEAN CELL VOLUME 97 fl (80.0-100.0); MEAN CORPUSCULAR HEMOGLOBIN 31 pg (27-31); MEAN CORPUSCULAR HGB CONC 32 g/dl (33.0-37.0); MEAN PLATELET VOLUME 10.1 fl (7.4-10.4); MONO # 0.4 K/mm3 (0.1-0.6); MONO % 8.6 % (1.7-9.3); PLATELET COUNT 391 K/mm3 (130-400); RED BLOOD COUNT 3.44 M/mm3 (4.10-5.30); REDCELL DISTRIBUTION WIDTH-CV 13.2 % (11.5-14.5)
[2021-04-24 06:07] LABS: HEMATOCRIT 33.2 % (37.0-47.0)
[2021-04-24 06:14] LABS: CALCIUM 7.9 mg/dL (8.4-10.2); CREATININE, serum 0.61 mg/dL (0.57-1.11); POTASSIUM 3.9 mmol/L (3.5-4.5)
[2021-04-24 07:04] VITALS: BP 95/65; PULSE 71; TEMP 98
--- NOTE | 2021-04-24 07:49 | NUR ---
Shift assessment completed. Patient c/o of chest pain /10 to chest that is constant, stabbing. Pain to Rt arm is resolved. Pt requested pain medication so informed primary nurse. PICC Rt upper arm. no redness/edema. NS running at 125 mL/hr. Pt stated unsure of last BM. Ordered meal tray for patient and informed pt to notify when tray arrives for medication. call light within reach. Pt resting in bed.
--- NOTE | 2021-04-24 08:30 | NUR ---
STUDENT NURSE ENTERED PT ROOM, PT RATING PAIN 6/10, REQUESTING ANXIETY AND PAIN MEDICATION. AGUSTIN CASTELLANOS CALLED AND ORDERED TO GIVE MOTRIN. STUDENT NURSE RELAYED INFORMATION TO PRIMARY RN, ENTERED PT ROOM AND PT SLEEPING, REPORTS PAIN "ISN'T THAT BAD". DID NOT GIVE MEDICATION. STUDENT NURSE ENTERED LATER AND PT COMPLAINING SHE HASNT RECIEVED PAIN MEDICATION OR ANXIETY MEDICATION AND RATING PAIN 8/10. PRIMARY RN ENTERED ROOM AGAIN AND PT RESTING WITH EYES CLOSED, WHEN ASKED TO RATE PAIN SHE SAID IT WAS IN THE CHEST. MOTRIN AND XANAX GIVEN, PT EAGER FOR DISCHARGE. ASSESSMENT PERFORMED
[2021-04-24] MEDS ORDERED: CEFTIN500 MG PO (08:39)
[2021-04-24] MEDS ORDERED: DOXYCYCLINE 10100 MG PO (08:40)
[2021-04-24] MEDS ORDERED: ACIDOPHILIS PO (08:41)
--- NOTE | 2021-04-24 09:31 | NUR ---
PT DISCHARGE EDUCATION PROVIDED, EDUCATED ON NEW MEDICATIONS STARTED AND APPT TIMES, PT DID NOT HAVE ANY QUESTIONS, VERY EAGER FOR DISCHARGE, PICC DC EDUCATION GIVEN, TELE REMOVED, PT ESCORTED OUT VIA WHEELCHAIR, NO OTHER NEEDS
--- NOTE | 2021-04-24 10:37 | NUR ---
Primary nurse was assisted with [id number] patient care by [employer] student Berenice Laws and [facility] instructor Aline Torres MSN, RN.
[2021-04-24 19:18] LABS: C-ANCA 8 U/mL (0-99)
== END 2021-04-24 09:36 | disposition home or self-care (01) | DRG 300 ==
LOC: COL.ER 18:19 → MEDICAL 20:39
PROVIDERS: Emergency Medicine; Physician Assistant; Student in an Organized Health Care Education/Training Program; ADMIT Internal Medicine
PROC: 02HV33Z Insertion of Infusion Device into Superior Vena Cava, Percutaneous Approach (ICD-10-PCS; principal; 2021-04-22)
DX: I76 Septic arterial embolism (principal); N39.0 Urinary tract infection, site not specified; I74.9 Embolism and thrombosis of unspecified artery; K59.09 Other constipation; F41.9 Anxiety disorder, unspecified; G89.29 Other chronic pain; M54.9 Dorsalgia, unspecified; N80.9 Endometriosis, unspecified; F17.210 Nicotine dependence, cigarettes, uncomplicated; Z20.822 Contact with and (suspected) exposure to COVID-19
CPT/HCPCS: 99223-AI; 99233-AI; 99239; C1751; J1650; J2270; J2543; J2704; J3370; J7030; J7050; Q9967